=== PATIENT | female | born 1985 | race Two or more races ===

== ENCOUNTER 2023-04-24 10:00 | Inpatient (IN) | payer MEDICAID ==
[~2023-04-24] VITALS: Ht 154.9 cm; Wt 88.5 kg
[2023-04-24] MEDS ORDERED: LACT. RINGERS/OXYTOCIN 20UNITS 500 ML IV ONE ×2 (10:30→11:00)
[2023-04-24] MEDS ORDERED: PHISODERM TOP SOLN 240ML BTL TOP PRN (10:30)
[2023-04-24] MEDS ORDERED: LIDOCAINE 2%HCL (LOCAL ANESTH.) INJ 20ML MDV IJ PRN (10:30)
[2023-04-24] MEDS ORDERED: PROMETHAZINE HCL 25 MG/ML 1ML IM PRN (10:30)
[2023-04-24] MEDS ORDERED: miSOPROStol 50 MCG per PRE-CUT 1/2 TAB PO PRN (10:30)
[2023-04-24] MEDS ORDERED: WITCH HAZEL-GLYCERIN PAD TOP PRN (10:30)
[2023-04-24] MEDS ORDERED: DERMOPLAST 60ML BOTTLE TOP PRN (10:30)
[2023-04-24] MEDS ORDERED: BUTORPHANOL TARTRATE 2 MG/1 ML VIAL IV PRN ×2 (10:30)
[2023-04-24 10:59] LABS: Basophils # (auto) 0 10 ^3/uL (0-0.2); Basophils % (auto) 0.4 % (0.0-2.0); Eosinophils # (auto) 0 10 ^3/uL (0-0.8); Eosinophils % (auto) 0.5 % (0.0-7.0); Hematocrit 35.2 % (36.0-46.0); Hemoglobin 11.6 g/dL (12.2-16.2); Lymphocytes # (auto) 1.6 10 ^3/uL (0.4-5.4); Lymphocytes % (auto) 16.7 % (10.0-50.0); Mean Corpuscular Hemoglobin 30.4 pg (28.0-32.0); Mean Corpuscular Hgb Conc. 32.8 g/dL (32.0-36.0); Mean Corpuscular Volume 92.6 fL (80.0-100.0); Monocytes # (auto) 0.5 10 ^3/uL (0-1.3); Monocytes % (auto) 4.9 % (0.0-12.0); Neutrophils # (auto) 7.2 10 ^3/uL (1.6-8.6); Neutrophils % (auto) 77.5 % (37.0-80.0); Red Cell Distribution Width 13.4 % (11.8-14.3); White Blood Cell 9.3 10^3/uL (4.4-10.8)
[2023-04-24 11:01] LABS: Urine Bacteria NONE SEEN /hpf (None Seen); Urine Blood Negative /uL (Negative); Urine Clarity Clear (Clear); Urine Color Yellow (Yellow); Urine Protein, UAD 2+ (Negative); Urine Specific Gravity 1.017 (1.001-1.035); Urine Urobilinogen Normal (Negative); Urine WBC 9 /hpf (0 - 5)
[2023-04-24 11:07] LABS: Amphetamine Screen, Urine Neg (NEGATIVE); Barbiturate Scree,Urine Neg (NEGATIVE); Benzodiazephine Screen, Urine Neg (NEGATIVE); Cocaine Screen, Urine Neg (NEGATIVE); Opiate Scree,Urine Neg (NEGATIVE)
[2023-04-24 11:08] LABS: Cannabinoid Screen, Urine Neg (NEGATIVE); Phencyclidine Screen, Urine Neg (NEGATIVE)
[2023-04-24 11:10] LABS: Alanine Aminotransferase 49 U/L (7-40); Alkaline Phosphatase 131 U/L (46-116); Anion Gap 8 (5-15); Aspartate Aminotransferase 49 U/L (13-40); BUN/Creatinine Ratio 12.3 (10.0-20.0); Bilirubin, Total 0.4 mg/dL (0.2-1.0); Blood Urea Nitrogen 17 mg/dL (9-23); Calcium 9.3 mg/dL (8.5-10.1); Carbon Dioxide 22 mmol/L (20-30); Chloride 106 mmol/L (98-107); Glucose 134 mg/dL (74-106); INR 0.93 (0.9-1.15); Partial Thromboplastin Time 26.9 SEC (24.5-34.5); Potassium 4.6 mmol/L (3.5-5.1); Prothrombin Time 9.8 sec (9.3-11.8); Sodium 136 mmol/L (136-145)
[2023-04-24] MEDS ORDERED: miSOPROStol 100 mcg TAB ONE (15:55)
[2023-04-24] MEDS ORDERED: WITCH HAZEL-GLYCERIN PAD TOP ONE (16:39)
[2023-04-24] MEDS ORDERED: DERMOPLAST 60ML BOTTLE TOP ONE (16:39)
[2023-04-24] MEDS ORDERED: PHISODERM TOP SOLN 240ML BTL TOP ONE (16:39)
[2023-04-24] MEDS ORDERED: DINOPROSTONE 10MG VAG SUPP PV ONE (19:15)
[2023-04-24] MEDS ORDERED: TERBUTALINE SULFATE 1 MG/ML 1ML VIAL SC PRN (19:15)
[2023-04-24] MEDS ORDERED: TERBUTALINE SULFATE 1 MG/ML 1ML VIAL SC ONE (19:50)
[2023-04-24] MEDS: LACTATED RINGER'S 1,000 ML IV SCH (22:38)
[2023-04-25] MEDS: LACTATED RINGER'S 1,000 ML IV SCH ×3 (07:40→22:06)
[2023-04-25] MEDS ORDERED: TERBUTALINE SULFATE 1 MG/ML 1ML VIAL SC PRN (13:30)
[2023-04-25] MEDS ORDERED: LACT. RINGERS/OXYTOCIN 20UNITS 1,000 ML IV SCH (13:30)
[2023-04-26] MEDS: LACTATED RINGER'S 1,000 ML IV SCH ×3 (03:34→19:34)
[2023-04-26 06:06] LABS: Rubella Antibodies, IgG 16.8 index (Immune >0.99)
[2023-04-26] MEDS ORDERED: DOCU-94 PO (09:54)
[2023-04-26] MEDS ORDERED: ceFAZolin 1GM/50ML 50 ML IV SCH (21:00)
[2023-04-26 23:55] LABS: Basophils # (auto) 0.1 10 ^3/uL (0-0.2); Basophils % (auto) 0.4 % (0.0-2.0); Eosinophils # (auto) 0 10 ^3/uL (0-0.8); Eosinophils % (auto) 0.4 % (0.0-7.0); Hematocrit 35.1 % (36.0-46.0); Hemoglobin 11.5 g/dL (12.2-16.2); Lymphocytes # (auto) 1.4 10 ^3/uL (0.4-5.4); Lymphocytes % (auto) 10.7 % (10.0-50.0); Mean Corpuscular Hemoglobin 30.1 pg (28.0-32.0); Mean Corpuscular Hgb Conc. 32.6 g/dL (32.0-36.0); Mean Corpuscular Volume 92.2 fL (80.0-100.0); Monocytes % (auto) 7.6 % (0.0-12.0); Neutrophils # (auto) 10.7 10 ^3/uL (1.6-8.6); Neutrophils % (auto) 80.9 % (37.0-80.0); Red Blood Cells 3.81 10^6/uL (4.0-5.20); Red Cell Distribution Width 13.3 % (11.8-14.3); White Blood Cell 13.2 10^3/uL (4.4-10.8)
[2023-04-27] VITALS (27 sets, daily range): BP systolic 94–128; BP diastolic 54–81; PULSE 71–100; RESP 15–22; TEMP 97.8–98.2; O2SAT 94–100
[2023-04-27 00:08] LABS: Alanine Aminotransferase 53 U/L (7-40); Albumin 3.5 g/dL (3.2-4.8); Alkaline Phosphatase 126 U/L (46-116); Anion Gap 8 (5-15); Aspartate Aminotransferase 39 U/L (13-40); BUN/Creatinine Ratio 6.6 (10.0-20.0); Bilirubin, Total 0.6 mg/dL (0.2-1.0); Blood Urea Nitrogen 8 mg/dL (9-23); Carbon Dioxide 20 mmol/L (20-30); Chloride 107 mmol/L (98-107); Glucose 81 mg/dL (74-106); Potassium 4.3 mmol/L (3.5-5.1); Sodium 135 mmol/L (136-145); Total Protein 6.3 g/dL (5.7-8.2)
[2023-04-27] MEDS ORDERED: SUCCINYLCHOLINE CHLORIDE 20 MG/ML 10ML VIAL IV ONE (00:08)
[2023-04-27] MEDS ORDERED: TETRACAINE 1% INJ 2 ML VIAL IJ ONE (00:08)
[2023-04-27] MEDS ORDERED: fentaNYL CITRATE 100 MCG/2 ML VL ONE (00:09)
[2023-04-27] MEDS ORDERED: MORPHINE SULF PF 5 MG/10 ML VIAL ONE (00:09)
[2023-04-27] MEDS ORDERED: KETOROLAC TROMETH 30 MG/ML 1ML VIAL ONE (00:10)
[2023-04-27] MEDS ORDERED: ONDANSETRON HCL 4 MG/2 ML VIAL ONE (00:10)
[2023-04-27] MEDS ORDERED: GLYCOPYRROLATE 0.2 MG/ML 1ML VIAL ONE (00:10)
[2023-04-27] MEDS ORDERED: ePHEDrine SULFATE 50 MG/ML AMP ONE (00:10)
[2023-04-27] MEDS ORDERED: oxyTOCIN 10 UNIT/ML 10ML VIAL ONE (00:10)
[2023-04-27] MEDS ORDERED: ceFAZolin 1GM VL ONE (00:27)
[2023-04-27] MEDS ORDERED: METHYLERGONOVINE MALEATE 0.2 MG/ML AMP IM ONE (00:32)
[2023-04-27] MEDS ORDERED: MIDAZOLAM HCL 2MG/2ML 2ml VIAL (1mg/ml) ONE (00:41)
[2023-04-27] MEDS ORDERED: GUM (CHEWING) 1 GUM CHEW CHEW ONE (01:45)
[2023-04-27] MEDS ORDERED: LACT. RINGERS/OXYTOCIN 20UNITS 1,000 ML IV ONE (01:45)
[2023-04-27] MEDS ORDERED: ONDANSETRON HCL 4 MG/2 ML VIAL IV PRN ×3 (01:45→02:00)
[2023-04-27] MEDS ORDERED: MILK OF MAGNESIA 30ML SUSP PO PRN (01:45)
[2023-04-27] MEDS ORDERED: FAMOTIDINE (10MG/ML) 2ML VL IV ONE (01:46)
[2023-04-27] MEDS ORDERED: NALOXONE HCL 0.4 MG/ML VIAL IV PRN (02:00)
[2023-04-27] MEDS ORDERED: diphenhdrAMINE HCL 50 MG/1 ML VL IV PRN (02:00)
[2023-04-27] MEDS ORDERED: KETOROLAC TROMETH 30 MG/ML 1ML VIAL IV PRN (02:00)
[2023-04-27] MEDS ORDERED: DexAMETHasone SOD PHOS 10MG/1ML VIAL INJ IV PRN (02:00)
[2023-04-27] MEDS ORDERED: ceFAZolin 1GM/50ML 50 ML IV SCH (05:00)
[2023-04-27 05:07] LABS: RPR Non Reactive (Non Reactive)
[2023-04-27] MEDS: ceFAZolin 1GM/50ML 50 ML IV SCH ×2 (09:15→17:23)
[2023-04-27] MEDS: LACTATED RINGER'S 1,000 ML IV SCH (09:16)
[2023-04-27 10:41] LABS: Basophils # (auto) 0 10 ^3/uL (0-0.2); Basophils % (auto) 0.1 % (0.0-2.0); Eosinophils # (auto) 0 10 ^3/uL (0-0.8); Hematocrit 22.7 % (36.0-46.0); Hemoglobin 7.4 g/dL (12.2-16.2); Lymphocytes # (auto) 0.7 10 ^3/uL (0.4-5.4)
[2023-04-27 10:42] LABS: Lymphocytes % (auto) 3.4 % (10.0-50.0); Mean Corpuscular Hemoglobin 30.4 pg (28.0-32.0); Mean Corpuscular Hgb Conc. 32.8 g/dL (32.0-36.0); Mean Corpuscular Volume 92.8 fL (80.0-100.0); Monocytes # (auto) 1.3 10 ^3/uL (0-1.3); Monocytes % (auto) 6.6 % (0.0-12.0); Neutrophils # (auto) 17.5 10 ^3/uL (1.6-8.6); Neutrophils % (auto) 89.9 % (37.0-80.0); Red Blood Cells 2.44 10^6/uL (4.0-5.20); Red Cell Distribution Width 13.7 % (11.8-14.3); White Blood Cell 19.4 10^3/uL (4.4-10.8)
[2023-04-27] MEDS: ACETAMINOPHEN IV 1000 MG/100ML (10MG/ML) IV PRN ×2 (12:26→20:18)
[2023-04-27] MEDS ORDERED: ONDANSETRON HCL 4 MG/2 ML VIAL IV ONE (15:18)
[2023-04-27] MEDS ORDERED: DexAMETHasone SOD PHOS 10MG/1ML VIAL INJ IV ONE (15:18)
[2023-04-27] MEDS ORDERED: MIDAZOLAM HCL 2MG/2ML 2ml VIAL (1mg/ml) IV ONE (15:18)
[2023-04-27] MEDS ORDERED: ePHEDrine SULFATE 50 MG/ML AMP IV ONE (15:18)
[2023-04-27] MEDS ORDERED: PHENYLEPHRINE HCL 10 MG/ML VL IV ONE (15:18)
[2023-04-27 19:06] LABS: Treponema pallidum Ab (FTA-Ab) Non Reactive (Non Reactive)
[2023-04-27] MEDS: IBUPROFEN 800 MG TAB PO SCH (22:00)
[2023-04-28] VITALS (23 sets, daily range): BP systolic 95–128; BP diastolic 61–81; PULSE 84–109; RESP 15–18; TEMP 97.6–98.8; O2SAT 97–100
[2023-04-28] MEDS: ceFAZolin 1GM/50ML 50 ML IV SCH (01:05)
[2023-04-28] MEDS ORDERED: HYDROcodone-ACET 5/325MG TAB PO PRN (01:45)
[2023-04-28] MEDS ORDERED: HYDROcodone-ACET 10/325MG TAB PO PRN (01:45)
[2023-04-28] MEDS: ACETAMINOPHEN 325 MG TAB PO PRN ×3 (04:36→21:15)
[2023-04-28] MEDS: IBUPROFEN 800 MG TAB PO SCH ×2 (05:44→15:54)
[2023-04-28 07:13] LABS: Basophils # (auto) 0 10 ^3/uL (0-0.2); Basophils % (auto) 0.2 % (0.0-2.0); Eosinophils # (auto) 0.1 10 ^3/uL (0-0.8); Eosinophils % (auto) 0.7 % (0.0-7.0); Hematocrit 19.7 % (36.0-46.0); Lymphocytes # (auto) 1.9 10 ^3/uL (0.4-5.4); Lymphocytes % (auto) 13.4 % (10.0-50.0); Mean Corpuscular Hemoglobin 31.1 pg (28.0-32.0); Mean Corpuscular Hgb Conc. 33.3 g/dL (32.0-36.0); Mean Corpuscular Volume 93.3 fL (80.0-100.0); Monocytes % (auto) 6.9 % (0.0-12.0); Neutrophils # (auto) 11.5 10 ^3/uL (1.6-8.6); Neutrophils % (auto) 78.8 % (37.0-80.0); Red Blood Cells 2.11 10^6/uL (4.0-5.20); Red Cell Distribution Width 13.3 % (11.8-14.3); White Blood Cell 14.5 10^3/uL (4.4-10.8)
[2023-04-28 07:16] LABS: Hemoglobin 6.5 g/dL (12.2-16.2)
[2023-04-28] MEDS ORDERED: LACTATED RINGER'S 1,000 ML IV SCH (07:30)
[2023-04-28 19:52] LABS: Basophils # (auto) 0 10 ^3/uL (0-0.2); Basophils % (auto) 0.4 % (0.0-2.0); Eosinophils # (auto) 0.1 10 ^3/uL (0-0.8); Eosinophils % (auto) 0.8 % (0.0-7.0); Hematocrit 27.8 % (36.0-46.0); Hemoglobin 9.5 g/dL (12.2-16.2); Lymphocytes # (auto) 1.6 10 ^3/uL (0.4-5.4); Lymphocytes % (auto) 12.2 % (10.0-50.0); Mean Corpuscular Hgb Conc. 34.1 g/dL (32.0-36.0); Mean Corpuscular Volume 91.1 fL (80.0-100.0); Monocytes # (auto) 0.8 10 ^3/uL (0-1.3); Monocytes % (auto) 6.3 % (0.0-12.0); Neutrophils # (auto) 10.3 10 ^3/uL (1.6-8.6); Neutrophils % (auto) 80.3 % (37.0-80.0); Red Blood Cells 3.06 10^6/uL (4.0-5.20); Red Cell Distribution Width 14.4 % (11.8-14.3); White Blood Cell 12.9 10^3/uL (4.4-10.8)
[2023-04-28] MEDS: DOCUSATE SOD 100 MG CAP PO SCH (22:00)
[2023-04-28] MEDS: IBUPROFEN 800 MG TAB PO PRN (23:55)
[2023-04-29] MEDS ORDERED: IBUP-1455 PO (00:07)
[2023-04-29] MEDS ORDERED: HYDR-4902 PO (00:07)
[2023-04-29] MEDS ORDERED: FERR30CA PO (00:07)
[2023-04-29 01:30] VITALS: BP 111/73; PULSE 82; RESP 18; TEMP 98.1; O2SAT 98
[2023-04-29] MEDS: ACETAMINOPHEN 325 MG TAB PO PRN (05:22)
[2023-04-29 07:34] VITALS: BP 126/77; PULSE 81; RESP 12; TEMP 97.9; O2SAT 99
[2023-04-29] MEDS: DOCUSATE SOD 100 MG CAP PO SCH ×2 (10:00→22:00)
[2023-04-29 11:05] VITALS: BP 120/60; PULSE 86; RESP 14; TEMP 98; O2SAT 100
[2023-04-29] MEDS: IBUPROFEN 800 MG TAB PO PRN ×2 (11:37→17:36)
[2023-04-29] MEDS: DOCUSATE CALCIUM 240 MG CAP PO SCH (11:38)
[2023-04-29 15:10] VITALS: BP 123/89; PULSE 88; RESP 15; TEMP 97.6; O2SAT 100
[2023-04-29 19:00] VITALS: BP 112/66; PULSE 84; RESP 20; TEMP 97.7; O2SAT 100
[2023-04-29 23:00] VITALS: BP 127/84; PULSE 96; RESP 18; TEMP 98.7; O2SAT 100
[2023-04-30] MEDS: IBUPROFEN 800 MG TAB PO PRN ×2 (01:02→10:12)
[2023-04-30 06:55] VITALS: BP 124/77; PULSE 78; RESP 16; TEMP 97.5; O2SAT 100
[2023-04-30] MEDS: DOCUSATE CALCIUM 240 MG CAP PO SCH (10:12)
[2023-04-30] MEDS: DOCUSATE SOD 100 MG CAP PO SCH (10:12)
[2023-04-30 11:05] VITALS: BP 112/72; PULSE 69; RESP 15; TEMP 98.1; O2SAT 98
[2023-04-30 14:15] VITALS: TEMP 98.1
== END 2023-04-30 14:15 | disposition home or self-care (01) | DRG 540 ==
LOC: LDRP 10:00
PROVIDERS: ADMIT Obstetrics & Gynecology; ATTEND Obstetrics & Gynecology
PROC: 3E0P7VZ Introduction of Hormone into Female Reproductive, Via Natural or Artificial Opening (ICD-10-PCS; 2023-04-24)
PROC: 30233N1 Transfusion of Nonautologous Red Blood Cells into Peripheral Vein, Percutaneous Approach (ICD-10-PCS; 2023-04-24)
PROC: 10D00Z1 Extraction of Products of Conception, Low, Open Approach (ICD-10-PCS; principal; 2023-04-26)
DX: O48.0 Post-term pregnancy (principal); R71.0 Precipitous drop in hematocrit; O61.9 Failed induction of labor, unspecified; Z3A.40 40 weeks gestation of pregnancy; O62.0 Primary inadequate contractions; O75.89 Other specified complications of labor and delivery; O34.13 Maternal care for benign tumor of corpus uteri, third trimester; D25.2 Subserosal leiomyoma of uterus; Z37.0 Single live birth
CPT/HCPCS: 36415; 59025; 80053; 80307; 81001; 81002; 85025; 85610; 85730; 86592; 86762; 86850; 86900; 86901; 86920; 87340; 94760; 94762; 96360; 96361; 96365; 96366; G0378; J0131; J0330; J0690; J1100; J1885; J2250; J2405; J2590; J3490